=== PATIENT | female | born 1995 | race Caucasian/White ===

== ENCOUNTER 2017-08-13 08:03 | Emergency (ER) | payer OTHER ==
[~2017-08-13 08:03] MED LIST: ABL/5 PO; ALBU1AER9 INH; AMT50 PO; BUSP-8 PO; FLUD0.1T10 PO; FLUT1INH INH; MECL1TAB40 PO; METO25TA4 PO; PRMT25 PO; SPR28 PO
[2017-08-13 08:09] VITALS: TEMP 36.8
[2017-08-13] MEDS ORDERED: ONDANSETRON INJ 2 MG/ML 2 ML VIAL IV STA (08:26)
[2017-08-13 08:30] VITALS: O2SAT 100
[2017-08-13] MEDS ORDERED: NORMOSOL R 1,000 ML IV ONE (08:30)
--- NOTE | 2017-08-13 08:32 | EMERGENCY ROOM VISIT NOTE ---
History Report prepared by Maria Luisa: Arlene Schultz Under the Supervision of: Dr. Rafy Myers M.D. First contact with patient: 08:15 Chief Complaint: SYNCOPE Stated Complaint: FAINTING, THROWING UP Nursing Triage Summary: Patient presents ambulatory to triage States she was drinking alcohol last night and passed out in her bathroom Woke on the floor about 2 am States she has been vomiting since History of Present Illness The patient is a 22 year old female who presents to the Emergency Room with complaints of a syncope episode beginning at 0230 this morning. She reports she had a couple drinks last night and at 0230 this morning, she fainted in her bathroom. She states that she woke up 15 minutes later and since that time, she has been alternating between fainting and vomiting. She reports her last drink was at 2129. She denies any chance of or retaining a tampon. Her LNMP was 07/21/17. She denies any use or marijuana. She does not want her parents called. Source of History: patient Onset: 0230 this morning Position: other (global) Quality: other (syncope episode ) Timing: intermittent Associated Symptoms: + vomiting Note: Negative chance of , retaining a tampon, or use or marijuana. Review of Systems See HPI for pertinent positives & negatives. A total of 10 systems reviewed and were otherwise negative. Past Medical & Surgical Medical Problems: (1) Asthma Surgical Problems: (1) H/O adenoidectomy Family History Cancer Diabetes mellitus FH: heart disease FHx: gallbladder disease FHx: lung disease Hypertension Social History Smoking Status: Never Smoker Alcohol Use: none Drug Use: none Marital Status: single Housing Status: lives with roommate Occupation Status: [employer] Current/Historical Medications Scheduled Ondasetron Odt (Zofran Odt), 4 MG SL Q6H Scheduled PRN Albuterol Sulfate (Proair Respiclick), 2 PUFFS INH UD PRN for SOB/Wheezing Miscellaneous Medications Etonogestrel (Nexplanon) Allergies Coded Allergies: Amoxicillin (Unverified Allergy, Unknown, VOMITING , 08/13/17) Physical Exam Vital Signs Date Time Temp Pulse Resp B/P (MAP) Pulse Ox O2 Delivery O2 Flow Rate FiO2 08/13/17 10:24 79 18 107/59 97 08/13/17 10:00 79 18 107/59 97 Room Air 08/13/17 08:42 67 99/64 100 Room Air 95 102/62 91 98/63 08/13/17 08:39 75 08/13/17 08:30 100 Room Air 08/13/17 08:09 36.8 87 16 102/65 99 Room Air Physical Exam GENERAL: Awake, alert, well-appearing, in no acute distress HENT: Normocephalic, atraumatic. Oropharynx unremarkable. EYES: Normal conjunctiva. Sclera non-icteric. NECK: Supple. No nuchal rigidity. FROM. No JVD. RESPIRATORY: Clear to auscultation. CARDIAC: Regular rate, normal rhythm. Extremities warm and well perfused. Pulses equal. ABDOMEN: Soft, non-distended. No tenderness to palpation. No rebound or guarding. No masses. RECTAL: Deferred. MUSCULOSKELETAL: Chest examination reveals no tenderness. The back is symmetrical on inspection without obvious abnormality. There is no CVA tenderness to palpation. No joint edema. LOWER EXTREMITIES: Calves are equal size bilaterally and non-tender. No edema. No discoloration. NEURO: Normal sensorium. No sensory or motor deficits noted. SKIN: No rash or jaundice noted. Medical Decision & Procedures ER Provider Diagnostic Interpretation: Radiology results as stated below per my review and radiologist interpretation: PA CHEST WITH ABDOMINAL SERIES CLINICAL HISTORY: Emesis. FINDINGS: A PA chest radiograph is obtained. No prior studies are available for comparison at the time of dictation. The cardiomediastinal silhouette is unremarkable. The lungs and pleural spaces are clear. No pneumothorax is seen. The bony thorax is grossly intact. There are bilateral nipple piercings. Supine and erect abdominal radiographs are obtained. No prior studies are available for comparison at the time of dictation. There is a nonobstructed abdominal bowel gas pattern. No evidence of intraperitoneal free air is seen. There are no abnormal abdominal calcifications. The lumbosacral spine and bony pelvis appear intact. IMPRESSION: 1. No active disease in the chest. 2. Nonobstructed abdominal bowel gas pattern. Electronically signed by: Tony Martinez M.D. 08/13/2017 9:55 AM Dictated Date/Time: 08/13/2017 9:54 AM Laboratory Results 08/13/17 08:33 Red Blood Count 4.72, Mean Corpuscular Volume 92.8, Mean Corpuscular Hemoglobin 30.9, Mean Corpuscular Hemoglobin Concent 33.3, Mean Platelet Volume 11.3, Neutrophils (%) (Auto) 88.8, Lymphocytes (%) (Auto) 7.2, Monocytes (%) (Auto) 3.4, Eosinophils (%) (Auto) 0.2, Basophils (%) (Auto) 0.1, Neutrophils # (Auto) 8.54, Lymphocytes # (Auto) 0.69, Monocytes # (Auto) 0.33, Eosinophils # (Auto) 0.02, Basophils # (Auto) 0.01 08/13/17 08:33 Test 08/13/17 08:32 08/13/17 08:33 Bedside Glucose 104 mg/dl (70-90) White Blood Count 9.62 K/uL (4.8-10.8) Red Blood Count 4.72 M/uL (4.2-5.4) Hemoglobin 14.6 g/dL (12.0-16.0) Hematocrit 43.8 % (37-47) Mean Corpuscular Volume 92.8 fL (80-100) Mean Corpuscular Hemoglobin 30.9 pg (25-34) Mean Corpuscular Hemoglobin Concent 33.3 g/dl (32-36) Platelet Count 166 K/uL (130-400) Mean Platelet Volume 11.3 fL (7.4-10.4) Neutrophils (%) (Auto) 88.8 % Lymphocytes (%) (Auto) 7.2 % Monocytes (%) (Auto) 3.4 % Eosinophils (%) (Auto) 0.2 % Basophils (%) (Auto) 0.1 % Neutrophils # (Auto) 8.54 K/uL (1.4-6.5) Lymphocytes # (Auto) 0.69 K/uL (1.2-3.4) Monocytes # (Auto) 0.33 K/uL (0.11-0.59) Eosinophils # (Auto) 0.02 K/uL (0-0.5) Basophils # (Auto) 0.01 K/uL (0-0.2) RDW Standard Deviation 47.1 fL (36.4-46.3) RDW Coefficient of Variation 13.8 % (11.5-14.5) Immature Granulocyte % (Auto) 0.3 % Immature Granulocyte # (Auto) 0.03 K/uL (0.00-0.02) Anion Gap 7.0 mmol/L (3-11) Estimated GFR () 106.6 Estimated GFR (Non- 92.0 BUN/Creatinine Ratio 18.4 (10-20) Calcium Level 8.7 mg/dl (8.5-10.1) Total Bilirubin 0.4 mg/dl (0.2-1) Direct Bilirubin < 0.1 mg/dl (0-0.2) Aspartate Amino Transf (AST/SGOT) 22 U/L (15-37) Alanine Aminotransferase (ALT/SGPT) 26 U/L (12-78) Alkaline Phosphatase 72 U/L (45-117) Total Protein 7.9 gm/dl (6.4-8.2) Albumin 4.2 gm/dl (3.4-5.0) Thyroid Stimulating Hormone (TSH) 3.210 uIu/ml (0.300-4.500) Human Chorionic Gonadotropin, Qual NEG (NEG) Labs reviewed by ED physician. Medications Administered Medications (Trade) Dose Ordered Sig/Lisbeth Route Start Time Stop Time Status Last Admin Dose Admin Parenteral Electrolyte Solution 1,000 ml @ 999 mls/hr Q1H1M ONCE IV 08/13/17 08:30 08/13/17 09:30 DC 08/13/17 08:40 999 MLS/HR Ondansetron HCl (Zofran Inj) 4 mg NOW STAT IV 08/13/17 08:26 08/13/17 08:31 DC 08/13/17 08:40 4 MG ED Course 0823: Past medical records reviewed. The patient was evaluated in room B3. A complete history and physical examination was performed. 0826: Zofran Inj 4 mg IV 0830: Parental Electrolyte Solution 1000 ml @ 999 mls/hr IV 1000: Upon reexamination the patient is feeling much better. I discussed results and treatment plan with the patient. She verbalizes agreement and understanding. The patient is ready for discharge. Medical Decision Differential diagnosis: Etiologies such as vasovagal event, infection, hypoglycemia, electrolyte abnormalities, cardiac sources, intracerebral event, toxicologic, neurologic, as well as others were entertained. This is a 22-year-old female who presents to emergency department complaining of vomiting. Serial abdominal examinations were performed in this patient in the emergency department at no time did the patient exhibited abdominal tenderness. In addition laboratory work was obtained which did not show an elevation in her white blood cell count. She has a normal CBC normal renal profile normal liver profile. Patient was given normal saline bolus as well as Zofran. Repeat examination revealed much improvement in the patient's symptoms. The patient was trialed on oral Gatorade prior to being discharged and was found to be able to keep it down. I recommended that the patient increase her fluid intake for the next 48 hours. I offered to discuss this patient's case with her parents however she adamantly refused. Patient was in agreement with the treatment plan. Medication Reconcilliation Current Medication List: was personally reviewed by me Blood Pressure Screening Patient's blood pressure: Normal blood pressure Blood pressure disposition: Did not require urgent referral Impression Primary Impression: Vomiting Scribe Attestation The scribe's documentation has been prepared under my direction and personally reviewed by me in its entirety. I confirm that the note above accurately reflects all work, treatment, procedures, and medical decision making performed by me. Departure Information Dispostion Home / Self-Care Prescriptions Ondasetron Odt (ZOFRAN ODT) 4 Mg Tab 4 MG SL Q6H for Nausea, #6 TAB Prov: Rafy Myers MD 08/13/17 Referrals [facility] (PCP) Forms HOME CARE DOCUMENTATION FORM, IMPORTANT VISIT INFORMATION Patient Instructions My [facility] Additional Instructions Increase fluids next 48 hours You have been examined and treated today on an emergency basis only. This is not a substitute for, or an effort to provide, complete comprehensive medical care. It is impossible to recognize and treat all injuries or illnesses in a single emergency department visit. It is therefore important that you follow up closely with [facility]. Call as soon as possible for an appointment. Thank you for your time and consideration. I look forward to speaking with you again soon. Please don't hesitate to call us if you have any questions. Problem Qualifiers Primary Impression: Vomiting Vomiting type: unspecified Vomiting Intractability: unspecified Nausea presence: unspecified Qualified Codes: R11.10 - Vomiting, unspecified
[2017-08-13 08:49] LABS: BASO % 0.1 %; BASO ABS # 0.01 K/uL (0-0.2); EOS % 0.2 %; EOS ABS # 0.02 K/uL (0-0.5); HEMATOCRIT 43.8 % (37-47); HEMOGLOBIN 14.6 g/dL (12.0-16.0); IG# 0.03 K/uL (0.00-0.02); LYMPH % 7.2 %; LYMPH ABS # 0.69 K/uL (1.2-3.4); MEAN CELL VOLUME 92.8 fL (80-100); MEAN CORPUSCULAR HEMOGLOBIN 30.9 pg (25-34); MEAN CORPUSCULAR HGB CONC 33.3 g/dl (32-36); MEAN PLATELET VOLUME 11.3 fL (7.4-10.4); MONO % 3.4 %; MONO ABS # 0.33 K/uL (0.11-0.59); NEUT % 88.8 %; NEUT ABS # 8.54 K/uL (1.4-6.5); PLATELET COUNT 166 K/uL (130-400); RED CELL DISTRIBUTION WIDTH CV 13.8 % (11.5-14.5); RED CELL DISTRIBUTION WIDTH SD 47.1 fL (36.4-46.3); WHITE BLOOD COUNT 9.62 K/uL (4.8-10.8)
[2017-08-13] MEDS ORDERED: ALBU18002 INH (09:00)
[2017-08-13] MEDS ORDERED: ETON1IMP2 (09:01)
[2017-08-13 09:03] LABS: BLOOD UREA NITROGEN 16 mg/dl (7-18); CREATININE 0.89 mg/dl (0.60-1.20); GLUCOSE 102 mg/dl (70-99)
[2017-08-13 09:04] LABS: ALBUMIN 4.2 gm/dl (3.4-5.0); ALT/SGPT 26 U/L (12-78); CALCIUM 8.7 mg/dl (8.5-10.1); CARBON DIOXIDE 25 mmol/L (21-32); POTASSIUM 4.1 mmol/L (3.5-5.1); SODIUM 142 mmol/L (136-145)
[2017-08-13 09:14] LABS: ALKALINE PHOSPHATASE 72 U/L (45-117); AST/SGOT 22 U/L (15-37); TOTAL PROTEIN 7.9 gm/dl (6.4-8.2)
--- NOTE | 2017-08-13 09:56 | DIAGNOSTIC IMAGING REPORT ---
PA CHEST WITH ABDOMINAL SERIES CLINICAL HISTORY: Emesis. FINDINGS: A PA chest radiograph is obtained. No prior studies are available for comparison at the time of dictation. The cardiomediastinal silhouette is unremarkable. The lungs and pleural spaces are clear. No pneumothorax is seen. The bony thorax is grossly intact. There are bilateral nipple piercings. Supine and erect abdominal radiographs are obtained. No prior studies are available for comparison at the time of dictation. There is a nonobstructed abdominal bowel gas pattern. No evidence of intraperitoneal free air is seen. There are no abnormal abdominal calcifications. The lumbosacral spine and bony pelvis appear intact. IMPRESSION: 1. No active disease in the chest. 2. Nonobstructed abdominal bowel gas pattern. Electronically signed by: Tony Martinez M.D. 08/13/2017 9:55 AM Dictated Date/Time: 08/13/2017 9:54 AM
[2017-08-13] MEDS ORDERED: ONDA4TAB10 SL (10:02)
[2017-08-13 10:24] VITALS: BP 107/59; PULSE 79; O2SAT 97
== END 2017-08-13 10:25 | disposition home or self-care (01) ==
LOC: C.EDB 08:04
DX: R11.10 Vomiting, unspecified (principal); J45.909 Unspecified asthma, uncomplicated; Z90.89 Acquired absence of other organs; Z83.3 Family history of diabetes mellitus; Z82.49 Family history of ischemic heart disease and other diseases of the circulatory system